=== PATIENT | female | born 1985 | race Caucasian/White ===

== ENCOUNTER 2017-12-30 15:20 | Observation (INO) | payer OTHER ==
[2017-12-30] VITALS (10 sets, daily range): BP systolic 108–123; BP diastolic 69–81
[~2017-12-30] VITALS: Ht 162.6 cm; Wt 73.3 kg
[2017-12-30] MEDS ORDERED: BETAMETHASONE ACE/NA PHOS 6 MG/ML (CELESTONE SOLUSPAN) ONE (16:45)
[2017-12-30] MEDS ORDERED: D5 LR IV SOLUTION 1,000 ML IV ONE (16:45)
[2017-12-30] MEDS: BETAMETHASONE ACE/NA PHOS 6 MG/ML (CELESTONE SOLUSPAN) IM SCH (16:57)
[2017-12-30] MEDS: D5 LR IV SOLUTION 1,000 ML IV SCH (16:57)
[2017-12-30 17:15] LABS: BASOPHILS % (AUTO) 0 % (0-10); EOSINOPHILS # (AUTO) 0.1 10^3/uL (0.0-0.3); EOSINOPHILS % (AUTO) 1 % (0-10); HEMATOCRIT 39 % (35-52); HEMOGLOBIN 13.5 G/DL (11.5-16.0); LYMPHOCYTES # (AUTO) 1.8 X 10^3 (1.0-4.0); LYMPHOCYTES % (AUTO) 22 % (12-44); MEAN CORPUSCULAR HEMOGLOBIN 31 PG (25-34); MEAN CORPUSCULAR HGB CONC 35 G/DL (32-36); MEAN CORPUSCULAR VOLUME 88 FL (80-99); MEAN PLATELET VOLUME 9.3 FL (7.4-10.4); MONOCYTES # (AUTO) 0.6 X 10^3 (0.0-1.0); MONOCYTES % (AUTO) 7 % (0-12); NEUTROPHILS % (AUTO) 71 % (42-75); PLATELET COUNT 263 10^3/uL (130-400); RED BLOOD COUNT 4.41 10^6/uL (4.35-5.85); RED CELL DISTRIBUTION WIDTH 13.1 % (10.0-14.5); WHITE BLOOD COUNT 8.5 10^3/uL (4.3-11.0)
--- OUTSIDE RECORDS SUMMARY | 2017-12-30 20:13 | XMS REPORT | Continuity of Care Document ---
Author Author [facility] Organization [facility] Address Unknown Phone Unavailable Allergies There is no data. Medications There is no data. Problems Date Dx Coded Attending Type Code Diagnosis Diagnosed By 04/30/2015 IESHA WOORDUFF DO Ot G97.1 04/30/2015 IESHA WOODRUFF DO Ot O89.8 Procedures There is no data. Results There is no data. Encounters ACCT No. Visit Date/Time Discharge Status Pt. Type Provider Facility Loc./Unit Complaint [id number] 04/30/2015 15:54:00 04/30/2015 16:40:00 DIS Outpatient IESHA WOODRUFF DO [facility]
--- NOTE | 2017-12-30 22:06 | History & Physical ---
History and Physical Date Seen by Provider: Dec 30, 2017 Time Seen by Provider: 22:01 This patient is a 32-year-old A1 white female with an EDC of January giving her an estimated gestational age now of 32 weeks. She presented approximately 1520 today after having experienced a fairly significant fall while playing with one of her children 3 p.m. She has a fairly notable contusion to her left elbow and to her knee. She denies rupture membranes or bleeding. She is feeling occasional contractions. During the initial period of monitoring she began to contract about every 2-4 minutes. She does feel baby moving. She has had no other complications this . Allergies are none Medications are Synthroid and vitamins Medical social and surgical histories are per the antepartum record HEENT exam is normal Neck supple no lymphadenopathy no thyromegaly Abdomen is gravid soft nontender nondistended Extremities show clubbing cyanosis. The left elbow and forearm have a 10 x 14 cm ecchymotic contusion. The knee has a smaller abrasion. Pelvic exam shows a cervix less than a centimeter dilated and thick monitor shows contractions 2-4 minutes. The patient feels about 6 or 8 of these an hour. Laboratory Tests 12/30/17 17:00 Assessment and plan 32 weeks gestation status post traumatic fall and now with contractions. Patient will be monitored for at least 24 hours because of the increased potential and risk for placental abruption after trauma. She is being observed for signs or symptoms of progress in labor. She does strain cervical change we will initiate tocolytics. She has been given 12 mg of betamethasone IM empirically and we will repeat that in 24 hours. labor/trauma in Allergies and Home Medications Allergies Coded Allergies: No Known Drug Allergies (Unverified , 12/30/17) Patient Home Medication List Home Medication List Reviewed: Yes GUERITA DING MD Dec 30, 2017 10:06 pm
[2017-12-31 00:30] VITALS: BP 114/62
[2017-12-31 03:30] VITALS: BP 111/71
[2017-12-31 05:30] VITALS: BP 113/72
[2017-12-31] MEDS: D5 LR IV SOLUTION 1,000 ML IV SCH ×3 (06:04→12:22)
--- NOTE | 2017-12-31 07:19 | Progress Note-Standard ---
Standard Progress Note Progress Notes/Assess & Plan Date Seen by Provider: Dec 31, 2017 Time Seen by Provider: 07:17 Progress/Assessment & Plan This patient is without complaint except for her left elbow and right knee being tender. She denies contractions. She does feel baby moving. She denies rupture membranes or bleeding. She denies headache, denies shortness of breath , denies nausea vomiting, and denies chest pain. monitor shows no contractions. There is a normal heart rate pattern. Vital Signs Date Time Temp Pulse Resp B/P (MAP) Pulse Ox O2 Delivery O2 Flow Rate FiO2 12/31/17 05:30 97.6 83 18 113/72 (86) Room Air 12/31/17 03:30 97.8 81 18 111/71 (84) Room Air 12/31/17 00:30 98.1 76 18 114/62 (79) Room Air 12/30/17 23:30 78 18 112/69 (83) Room Air 12/30/17 22:00 94 18 110/75 (87) Room Air 12/30/17 21:00 90 108/69 (82) Room Air 12/30/17 20:00 99.0 94 120/72 (88) Room Air 12/30/17 19:00 88 112/72 (85) Room Air 12/30/17 18:30 86 113/74 (87) Room Air 12/30/17 18:00 86 108/74 (85) Room Air 12/30/17 17:30 98.1 82 116/81 (93) Room Air 12/30/17 17:00 Room Air 12/30/17 16:30 73 16 122/81 (95) Room Air 12/30/17 16:00 87 16 123/78 (93) Room Air Vital signs are stable. Patient afebrile. The abdomen is gravid soft nontender nondistended. Extremities show no clubbing cyanosis. There is a contusion on her left elbow an abrasion and contusion on her right knee that are stable. There is no evidence of bone fracture. Patient can move her extremities well. She states that she is sore but her pain has improved since admission. Assessment and plan hospital day number 2 with labor that now has resolved. This returned labor commenced after the patient had experienced a traumatic fall. She has been observed since shortly after 3 p.m. yesterday when she follows observation will continue until 3 p.m. today specific for any signs symptoms and indications of compromise/abruption. He remains stable through the 24-hour period of observation and she will be discharged home with follow-up in clinic Final Diagnosis labor/trauma in GUERITA DING MD Dec 31, 2017 7:19 am
--- NOTE | 2017-12-31 07:22 | Discharge Instructions ---
Discharge Instructions Discharge Medications New, Converted or Re-Newed RX: Other Patient Instructions Patient Instructions: As directed Return to The Hospital For: As directed Activity & Diet Discharge Diet: No Restrictions Activity as Tolerated: Yes Orders-Post D/C & Referrals Return to clinic as scheduled for your are OB appointment Return to clinic for any signs symptoms or indications of labor Return to clinic for any issues of concern with the . GUERITA DING MD Dec 31, 2017 7:22 am
[2017-12-31 08:00] VITALS: BP 116/73
[2017-12-31 12:10] VITALS: BP 95/53
[2017-12-31] MEDS ORDERED: TETANUS,DIPTH,PERTUSS P/F (BOOSTRIX) 0.5 ML VIAL IM ONE (14:45)
[2017-12-31] MEDS: BETAMETHASONE ACE/NA PHOS 6 MG/ML (CELESTONE SOLUSPAN) IM SCH (15:17)
== END 2017-12-31 15:30 | disposition home or self-care (01) ==
LOC: LDRP 15:20 → WSo 15:20 → LDRP 19:40 → WSo 19:40
PROVIDERS: ADMIT Obstetrics & Gynecology; ATTEND Obstetrics & Gynecology
DX: O60.03 Preterm labor without delivery, third trimester (principal); O9A.213 Injury, poisoning and certain other consequences of external causes complicating pregnancy, third trimester; S50.02XA Contusion of left elbow, initial encounter; S80.01XA Contusion of right knee, initial encounter; W19.XXXA Unspecified fall, initial encounter; Z3A.32 32 weeks gestation of pregnancy; Z23 Encounter for immunization
CPT/HCPCS: 36415; 85025; 90715; 96360; 96361; 96372; 99211; G0378

== ENCOUNTER 2018-02-02 09:08 | Outpatient (CLI) | payer OTHER ==
[~2018-02-02] VITALS: Ht 162.6 cm; Wt 74.2 kg
[2018-02-02 09:39] VITALS: BP 115/81
[2018-02-02] MEDS ORDERED: LEVO200T6 PO (09:46)
[2018-02-02] MEDS ORDERED: PREN1TAB44 PO (09:46)
[2018-02-10] MEDS ORDERED: OXYC1TAB12 PO (07:46)
[2018-02-10] MEDS ORDERED: IBUP-1780 PO (07:46)
[2018-02-10] MEDS ORDERED: DOCU100C37 PO (07:46)
== END 2018-02-02 09:37 | disposition home or self-care (01) ==
LOC: PREOP 09:08
PROVIDERS: ATTEND Obstetrics & Gynecology
DX: Z01.818 Encounter for other preprocedural examination (principal)
CPT/HCPCS: 87081

== ENCOUNTER 2018-02-09 03:24 | Inpatient (IN) | payer OTHER ==
[~2018-02-09] VITALS: Ht 162.6 cm; Wt 74.4 kg
[~2018-02-09 03:24] MED LIST: LEVO200T6 PO; PREN1TAB44 PO
[2018-02-09 10:08] VITALS: BP 120/90
[2018-02-09] MEDS ORDERED: D5 LR IV SOLUTION 1,000 ML IV SCH (10:15)
[2018-02-09] MEDS ORDERED: ceFAZolin INJECTION 2,000 MG in NS (IVPB) 50 ML IV ONE (10:15)
[2018-02-09] MEDS ORDERED: ceFAZolin 2 GM IV Premixed 50 ML IV ONE (10:15)
[2018-02-09] MEDS ORDERED: metroNIDAZOLE 500MG/100ML IVPB 100 ML IV ONE ×2 (10:15)
--- OUTSIDE RECORDS SUMMARY | 2018-02-09 10:19 | XMS REPORT | Continuity of Care Document ---
Author Author [facility] Organization [facility] Address Unknown Phone Unavailable Allergies Active Description Code Type Severity Reaction Onset Reported/Identified Relationship to Patient Clinical Status Yes No Known Drug Allergies [id number] Drug Allergy Unknown N/A 12/30/2017 Medications There is no data. Problems Date Dx Coded Attending Type Code Diagnosis Diagnosed By 04/30/2015 IESHA WOODRUFF DO Ot G97.1 04/30/2015 IESHA WOODRUFF DO Ot O89.8 12/31/2017 Ot O60.03 LABOR WITHOUT DELIVERY, THIRD TR 12/31/2017 Ot O9A.213 INJ/POISN/ OTH CONSEQ OF EXTERNAL CAUSES 12/31/2017 Ot S50.02XA CONTUSION OF LEFT ELBOW, INITIAL ENCOUNT 12/31/2017 Ot S80.01XA CONTUSION OF RIGHT KNEE, INITIAL ENCOUNT 12/31/2017 Ot W19.XXXA UNSPECIFIED FALL, INITIAL ENCOUNTER 12/31/2017 Ot Z23 ENCOUNTER FOR IMMUNIZATION 12/31/2017 Ot Z3A.32 32 WEEKS GESTATION OF Procedures There is no data. Results Test Result Range Complete blood count (CBC) with automated white blood cell (WBC) differential - 12/30/17 17:00 Blood leukocytes automated count (number/volume) 8.5 10*3/uL 4.3-11.0 Blood erythrocytes automated count (number/volume) 4.41 10*6/uL 4.35-5.85 Venous blood hemoglobin measurement (mass/volume) 13.5 g/dL 11.5-16.0 Blood hematocrit (volume fraction) 39 % 35-52 Automated erythrocyte mean corpuscular volume 88 [foz_us] 80-99 Automated erythrocyte mean corpuscular hemoglobin (mass per erythrocyte) 31 pg 25-34 Automated erythrocyte mean corpuscular hemoglobin concentration measurement ( mass/volume) 35 g/dL 32-36 Automated erythrocyte distribution width ratio 13.1 % 10.0-14.5 Automated blood platelet count (count/volume) 263 10*3/uL 130-400 Automated blood platelet mean volume measurement 9.3 [foz_us] 7.4-10.4 Automated blood neutrophils/100 leukocytes 71 % 42-75 Automated blood lymphocytes/100 leukocytes 22 % 12-44 Blood monocytes/100 leukocytes 7 % 0-12 Automated blood eosinophils/100 leukocytes 1 % 0-10 Automated blood basophils/100 leukocytes 0 % 0-10 Blood neutrophils automated count (number/volume) 6.0 10*3 1.8-7.8 Blood lymphocytes automated count (number/volume) 1.8 10*3 1.0-4.0 Blood monocytes automated count (number/volume) 0.6 10*3 0.0-1.0 Automated eosinophil count 0.1 10*3/uL 0.0-0.3 Automated blood basophil count (count/volume) 0.0 10*3/uL 0.0-0.1 [id number] - 12/30/17 17:00 [id number] SPECIMEN AVAILABLE NRG Methicillin resistant Staphylococcus aureus (MRSA) screening culture - 09:33 Methicillin resistant Staphylococcus aureus (MRSA) screening culture NEG NRG Encounters ACCT No. Visit Date/Time Discharge Status Pt. Type Provider Facility Loc./Unit Complaint [id number] 04/30/2015 15:54:00 04/30/2015 16:40:00 DIS Outpatient IESHA WOODRUFF DO [facility] [id number] 02/09/2018 10:12:00 ACT Inpatient GUERITA DING MD [facility] LD PREVIOUS [id number] 02/03/2018 14:28:00 Document Registration [id number] 12/31/2017 07:21:00 Document Registration
[2018-02-09] MEDS ORDERED: CITRIC ACID/SOB CIT (BICITRA) 30 ML UDC PO ONE (10:30)
[2018-02-09] MEDS ORDERED: METOCLOPRAMIDE INJ 10 MG/2 ML (REGLAN) IV ONE (10:30)
[2018-02-09] MEDS ORDERED: raNItidine INJECTION 50 MG in NS (IVPB) 50 ML IV ONE (10:30)
[2018-02-09] MEDS ORDERED: CATHETER FLUSH 10 ML SYR IV PRN (10:30)
[2018-02-09] MEDS: LACTATED RINGERS 1,000 ML IV PRN ×2 (10:34→11:00)
[2018-02-09 10:51] LABS: BASOPHILS % (AUTO) 0 % (0-10); EOSINOPHILS % (AUTO) 0 % (0-10); HEMATOCRIT 36 % (35-52); HEMOGLOBIN 12.9 G/DL (11.5-16.0); LYMPHOCYTES # (AUTO) 1.5 X 10^3 (1.0-4.0); LYMPHOCYTES % (AUTO) 22 % (12-44); MEAN CORPUSCULAR HEMOGLOBIN 31 PG (25-34); MEAN CORPUSCULAR HGB CONC 36 G/DL (32-36); MEAN CORPUSCULAR VOLUME 86 FL (80-99); MONOCYTES # (AUTO) 0.5 X 10^3 (0.0-1.0); MONOCYTES % (AUTO) 7 % (0-12); NEUTROPHILS % (AUTO) 71 % (42-75); PLATELET COUNT 224 10^3/uL (130-400); RED BLOOD COUNT 4.23 10^6/uL (4.35-5.85); RED CELL DISTRIBUTION WIDTH 12.7 % (10.0-14.5)
[2018-02-09 10:58] LABS: BILIRUBIN,URINE NEGATIVE (NEGATIVE); CLARITY,URINE SLIGHTLY CLOUDY; COLOR,URINE YELLOW; GLUCOSE, URINE (UA) NEGATIVE (NEGATIVE); KETONES,URINE NEGATIVE (NEGATIVE); LEUKOCYTE ESTERASE ,URINE NEGATIVE (NEGATIVE); NITRITE,URINE NEGATIVE (NEGATIVE); PH,URINE 6 (5-9); PROTEIN,URINE NEGATIVE (NEGATIVE); UROBILINOGEN,URINE NORMAL (NORMAL)
[2018-02-09 11:06] LABS: BACTERIA,URINE MODERATE /HPF; WBC,URINE RARE /HPF
[2018-02-09] MEDS ORDERED: fentaNYL INJECTION 100 MCG/2 ML AMP ONE (11:29)
[2018-02-09] MEDS ORDERED: LIDOCAINE PF 2% 2 ML (XYLOCAINE) VIAL ONE (11:29)
[2018-02-09] MEDS ORDERED: BUPIVACAINE SPINAL 0.75% (SENSORCAINE) 2 ML AMP ONE (11:29)
[2018-02-09 11:40] VITALS: BP 124/83
--- NOTE | 2018-02-09 12:07 | History & Physical ---
History and Physical Date Seen by Provider: Feb 09, 2018 Time Seen by Provider: 12:04 This patient is a 32-year-old A1 1 white female with an EDC of February 21, 2018 presenting now for repeat delivery at 38 weeks gestation. She has a history significant for polyhydramnios. She is also hypothyroid on medication. She denies rupture membranes or bleeding she is having contractions about every 4-5 minutes. She had a GBS culture at 35 weeks gestation that was negative. Allergies are none Medications are Synthroid 200 g daily and vitamins Medical social and surgical histories are per the antepartum record HEENT exam is normal Neck supple no lymphadenopathy no thyromegaly Abdomen is gravid soft nontender nondistended Extreme show no clubbing cyanosis. There is no Homans sign. Pelvic exam is deferred Laboratory Tests 02/09/18 10:34 monitor shows contractions every 4-5 minutes and a normal heart rate pattern Assessment and plan term at 38 weeks gestation admitted now for repeat delivery. Surgical risks and complications recovery and follow- up have been fully discussed. Patient accepts those risks and is ready to 38 weeks gestation Previous he has Allergies and Home Medications Allergies Coded Allergies: No Known Drug Allergies (Unverified , 12/30/17) Home Medications Levothyroxine Sodium 200 Mcg Tablet, 200 MCG PO DAILY, (Reported) Vit/Iron Fumarate/FA 1 Each Tablet, 1 EACH PO DAILY, (Reported) Patient Home Medication List Home Medication List Reviewed: Yes GUERITA DING MD Feb 09, 2018 12:07 pm
[2018-02-09] MEDS ORDERED: ONDANSETRON 4 MG/2 ML (SDV) Z0FRAN ONE (12:33)
[2018-02-09] MEDS ORDERED: PHENYLEPHRINE 100 MCG/ML 10 ML (ANESTHESIA) SYR ONE (12:33)
[2018-02-09] MEDS ORDERED: ROPIVACAINE 5MG/ML 30ML VIAL ONE ×2 (12:50→13:08)
[2018-02-09] MEDS ORDERED: KETOROLAC 30 MG/ML VIAL ONE (12:55)
[2018-02-09] MEDS ORDERED: ONDANSETRON 4 MG/2 ML (SDV) Z0FRAN IVP PRN ×2 (13:30→14:30)
[2018-02-09] MEDS: KETOROLAC 30 MG/ML VIAL IVP SCH ×2 (13:40→19:45)
[2018-02-09 13:55] VITALS: BP 111/68
[2018-02-09] MEDS ORDERED: OXYTOCIN/NORMAL SALINE 500 ML IV SCH (14:28)
[2018-02-09] MEDS ORDERED: MEPERIDINE (DEMEROL) INJ 100 MG/ML IM PRN (14:30)
[2018-02-09] MEDS ORDERED: TETANUS,DIPTH,PERTUSS P/F (BOOSTRIX) 0.5 ML VIAL IM ONE (14:30)
[2018-02-09] MEDS ORDERED: PROMETHAZINE INJ 25 MG/ML (PHENERGAN) AMP IM PRN (14:30)
[2018-02-09] MEDS ORDERED: MEASLES,MUMPS,RUBELLA 1 EA INJ SC ONE (14:30)
[2018-02-09] MEDS ORDERED: D5 LR IV SOLUTION 1,000 ML IV ONE (14:36)
[2018-02-09 16:00] VITALS: BP 127/84
[2018-02-09] MEDS: oxyCODONE/APAP 10/325MG (PERCOCET 10) TABLET PO PRN ×4 (16:00→23:56)
--- NOTE | 2018-02-09 18:14 | OPERATIVE REPORT ---
DATE OF SERVICE: 02/09/2018 PREOPERATIVE DIAGNOSIS: Term at 38 weeks gestation with polyhydramnios for repeat . POSTOPERATIVE DIAGNOSIS: Term at 38 weeks gestation with polyhydramnios for repeat . OPERATIVE PROCEDURE: Repeat low transverse delivery of a viable female with Apgars of 8 and 9 at 1 and 5 minutes. Expected weight of 7 pounds 1 ounce, time of 12:24 and a cord blood pH was 7.31. OPERATIVE DESCRIPTION: With the patient in the supine position under satisfactory spinal analgesia, the patient was prepped and draped in the usual fashion for abdominal surgery. Caraballo catheter was placed in the urinary bladder. A repeat Pfannenstiel incision made through skin with a scalpel. The patient's abdomen entered in the usual manner. Bladder retractor placed in position, clean scalpel used to make a 4 cm hysterotomy incision transversely across the lower uterine segment that was extended by blunt dissection as well. Copious clear fluid was released on hysterotomy. Dunne forceps were applied to facilitate the delivery of a vigorous viable female with Apgars and stats were noted above. The infant was bulb suctioned on delivery of the head and nuchal cord was easily released and delivery completed. The infant was bulb suctioned on delivery of the head and then again on completion of delivery. The umbilical cord was doubly clamped and cut and the passed to the pediatric nurse in attendance for delivery. Cord bloods were obtained. The placenta delivered spontaneously and partially manually as it was quite adherent near the fundus. The placenta was sent to pathology for permanent section. It was a normal placenta with a 3-vessel cord. The uterus was exteriorized and to wipe clean with a wet laparotomy sponge. Uterine incision closed with running locked suture of 2-0 Vicryl. Hemostasis was complete. The uterus was returned to the abdominal cavity. All blood clot and debris removed from the abdominal cavity. Sponge and needle counts correct, hemostasis assured. The anterior parietal peritoneum was closed in a running suture of 2-0 Vicryl. Rectus muscles were closed with that suture. Rectus fascia was closed with 2-0 Vicryl, subcutaneous tissue with 2-0 Vicryl and the skin was stapled. Sponge and needle counts were correct at the end of procedure. Estimated blood loss for procedure was around 500 mL. The patient tolerated the procedure well and was transferred to the recovery room in stable condition. The had been taken stable to the full term nursery under the care of the pediatric nurse. Job ID: [id number] DocumentID: [id number] Dictated Date: 02/09/2018 12:49:54 Occ Therapy Asst Date: 02/09/2018 18:13:39 Dictated By: GUERITA DING MD
[2018-02-09 19:45] VITALS: BP 135/93
[2018-02-09] MEDS: DOCUSATE SODIUM 100 MG (COLACE) CAP PO SCH (21:19)
[2018-02-10 00:05] VITALS: BP 124/89
[2018-02-10] MEDS: KETOROLAC 30 MG/ML VIAL IVP SCH (02:08)
[2018-02-10 04:20] VITALS: BP 116/80
[2018-02-10] MEDS: oxyCODONE/APAP 10/325MG (PERCOCET 10) TABLET PO PRN ×5 (04:22→20:30)
--- NOTE | 2018-02-10 07:44 | Progress Note-Standard ---
Standard Progress Note Progress Notes/Assess & Plan Date Seen by Provider: Feb 10, 2018 Time Seen by Provider: 07:43 Progress/Assessment & Plan This patient is without complaint. She is ambulating, voiding, tolerating oral intake well has good pain control. Vital Signs 02/09/18 02/10/18 16:00 04:20 Temp 97.8 Pulse 86 Resp 18 B/P (MAP) 116/80 (92) Pulse Ox 98 O2 Delivery Room Air Vital signs are stable. Patient is afebrile. Fundus is firm below the umbilicus and nontender. The surgical incision is clean dry and intact. Extremities show no clubbing or cyanosis. There is no Homans sign. Assessment and plan postoperative day number 1 status post repeat doing well. Plan is for routine convalescence care GUERITA DING MD Feb 10, 2018 7:44 am
[2018-02-10] MEDS ORDERED: IBUP-1780 PO (07:46)
[2018-02-10] MEDS ORDERED: DOCU100C37 PO (07:46)
[2018-02-10] MEDS ORDERED: OXYC1TAB12 PO (07:46)
--- NOTE | 2018-02-10 07:47 | Discharge Instructions ---
Discharge Instructions Discharge Medications New, Converted or Re-Newed RX: RX on Chart Patient Instructions Patient Instructions: As directed Return to The Hospital For: As directed Activity & Diet Discharge Diet: No Restrictions Activity as Tolerated: No Orders-Post D/C & Referrals Follow Up Appt: RTC on Monday, February 16, 2018 at 930 a.m. for incision check. Call to make follow up appt. for patient in 4 weeks. Wound Care: Remove max, apply benzoin and steri strips. Activity Per routine post instructions. Please call in RX to patient pharmacy. Diet as tolerated Patient may shower or tub bathe as desired. Continue home meds GUERITA DING MD Feb 10, 2018 7:47 am
[2018-02-10] MEDS ORDERED: IBUPROFEN 800 MG (MOTRIN) TAB PO ONE (08:21)
[2018-02-10 08:25] VITALS: BP 117/72
[2018-02-10] MEDS: DOCUSATE SODIUM 100 MG (COLACE) CAP PO SCH ×2 (08:25→20:31)
--- NOTE | 2018-02-10 09:07 | Anesthesia-Regional Post-Op ---
Regional Patient Condition Mental Status: Alert, Oriented x3 Circulation: Same as Pre-Op Headache: Absent Sensation: Full Recovery Motor Block: Absent Post Op Complications Complications None Follow Up Care/Instructions Patient Instructions None needed. Anesthesia/Patient Condition Patient is doing well, no complaints, stable vital signs, no apparent adverse anesthesia problems. No complications reported per nursing. D/C home per [facility] [place] [facility]: JAZ Villegas CRNA Feb 10, 2018 09:07
[2018-02-10 12:05] VITALS: BP 123/83
[2018-02-10] MEDS: IBUPROFEN 800 MG (MOTRIN) TAB PO SCH ×2 (15:16→20:31)
[2018-02-10 15:17] VITALS: BP 122/83
[2018-02-10 21:23] VITALS: BP 106/80
[2018-02-11] MEDS: oxyCODONE/APAP 10/325MG (PERCOCET 10) TABLET PO PRN ×3 (00:24→14:26)
[2018-02-11] MEDS: IBUPROFEN 800 MG (MOTRIN) TAB PO SCH ×3 (03:20→14:26)
[2018-02-11 03:21] VITALS: BP 125/79
[2018-02-11 08:30] VITALS: BP 106/72
[2018-02-11] MEDS: DOCUSATE SODIUM 100 MG (COLACE) CAP PO SCH (08:45)
--- NOTE | 2018-02-11 11:26 | Progress Note-Standard ---
Standard Progress Note Progress Notes/Assess & Plan Date Seen by Provider: Feb 11, 2018 Time Seen by Provider: 11:25 Progress/Assessment & Plan This patient is without complaint. She is ambulating, voiding, tolerating oral intake well has good pain control. Vital Signs 02/09/18 02/10/18 16:00 04:20 Temp 97.8 Pulse 86 Resp 18 B/P (MAP) 116/80 (92) Pulse Ox 98 O2 Delivery Room Air Vital signs are stable. Patient is afebrile. Fundus is firm below the umbilicus and nontender. The surgical incision is clean dry and intact. Extremities show no clubbing or cyanosis. There is no Homans sign. Assessment and plan postoperative day number 1 status post repeat doing well. Plan is for routine convalescence care February 11, 2018 Patient is without complaint. She is ambulating, voiding, tolerating oral intake well, has good pain control, and is requesting discharge home. Vital Signs 02/11/18 08:30 Temp 97.9 Pulse 84 Resp 18 B/P (MAP) 106/72 (83) Pulse Ox 97 O2 Delivery Room Air Vital signs are stable. Patient is afebrile. Fundus is firm below the umbilicus and nontender. Extremities show no clubbing cyanosis. There is no Homans sign. Assessment and plan post operative day number 2 status post repeat delivery doing well. Plan is for discharge home with follow-up in clinic Final Diagnosis 38 week repeat delivery GUERITA DING MD Feb 11, 2018 11:26 am
[2018-02-11 14:00] VITALS: BP 112/69
[2018-02-11 15:10] VITALS: BP 112/69
--- NOTE | 2018-02-14 16:42 | Physician Query-General Query ---
Physician Query-General Query to Physician: Dr Jeong, Can you please clarify the reason for the admission for : 1. Polyhydramonios 2. Previous 3. Other PHYSICIAN RESPONSE: Based on the clinical findings in the record, please respond to the query above on this document as an addendum. Possible, probable, or questionable diagnosis can be coded for INPATIENTS ONLY. Physician Response: Physician Response This patient was admitted for repeat due to polyhydramnios If you have questions please contact: Sausage Cutter: Ext: Thank you for your time and cooperation. Clinical Pay Station Department Manager/Sausage Cutter This is a permanent part of the medical record KRISTINA GUEVARA Feb 14, 2018 16:41 GUERITA JEONG MD Feb 15, 2018 07:50
== END 2018-02-11 15:10 | disposition home or self-care (01) | DRG 766 ==
LOC: LDRP 10:12 → WS 14:05
PROVIDERS: ADMIT Obstetrics & Gynecology; ATTEND Obstetrics & Gynecology
PROC: 10D00Z1 Extraction of Products of Conception, Low, Open Approach (ICD-10-PCS; principal; 2018-02-09 12:00)
DX: O40.3XX0 Polyhydramnios, third trimester, not applicable or unspecified (principal); O34.211 Maternal care for low transverse scar from previous cesarean delivery; O99.284 Endocrine, nutritional and metabolic diseases complicating childbirth; E03.9 Hypothyroidism, unspecified; Z3A.38 38 weeks gestation of pregnancy; Z37.0 Single live birth
CPT/HCPCS: 36415; 81000; 85025; 86850; 86900; 86901; 88307; 94664

== ENCOUNTER 2021-05-24 11:22 | Outpatient (CLI) | payer BC ==
[~2021-05-24] VITALS: Ht 162.6 cm; Wt 72.7 kg
[~2021-05-24 11:22] MED LIST changes: +DOCU100C37 PO; +IBUP-1780 PO; +OXYC1TAB12 PO
[2021-05-24 11:30] VITALS: BP 125/86
[2021-05-24] MEDS ORDERED: IRON DEXTRAN 1,000 MG/NS 250 ML IVPB IV ONE ×2 (11:45)
[2021-05-24] MEDS ORDERED: IRON DEXTRAN 25 MG/NS 6.25 ML TOTAL VOLUME IV ONE ×3 (11:45)
[2021-05-24] MEDS ORDERED: HYDROCORTISONE 100 MG/2 ML (Solu-CORTEF) VIAL IV PRN (11:45)
[2021-05-24] MEDS ORDERED: EPINEPHrine INJECTION 1 MG/ML AMP IM PRN (11:45)
[2021-05-24] MEDS ORDERED: diphenhydrAMINE 50 MG/ML INJ (BENADRYL) IV PRN (11:45)
[2021-05-24] MEDS ORDERED: RT-ALBUTEROL SULF 2.5 MG/3 ML PRE-MIX VIAL INH PRN (11:45)
== END 2021-05-24 13:30 ==
LOC: SDC 11:22
PROVIDERS: ATTEND Obstetrics & Gynecology
DX: D64.9 Anemia, unspecified (principal)
CPT/HCPCS: 96365

== ENCOUNTER → 2021-07-15 | Outpatient (CLI) | payer BC | LOC: LABNPT 15:11 | PROVIDERS: ATTEND Obstetrics & Gynecology | DX: O16.3 Unspecified maternal hypertension, third trimester (principal) | CPT/HCPCS: 82570; 84156 ==

== ENCOUNTER → 2021-07-21 | Outpatient (CLI) | payer BC | LOC: LABNPT 11:58 | PROVIDERS: ATTEND Obstetrics & Gynecology | DX: O13.9 Gestational [pregnancy-induced] hypertension without significant proteinuria, unspecified trimester (principal) | CPT/HCPCS: 82570; 84156 ==

== ENCOUNTER → 2021-08-04 | Outpatient (CLI) | payer BC ==
[~2021-08-04] VITALS: Ht 162.6 cm; Wt 77.7 kg
[~2021-08-04] MED LIST changes: +ACHD5005 PO; +FERR325T24 PO; +IBUP-844 PO; +[UNRECOGNIZED DRUG - CODE] TP
== END | disposition home or self-care (01) ==
LOC: PREOP 11:39
PROVIDERS: ATTEND Obstetrics & Gynecology
DX: Z01.818 Encounter for other preprocedural examination (principal)

== ENCOUNTER 2021-08-05 02:41 | Inpatient (IN) | payer BC ==
[2021-08-05] VITALS (11 sets, daily range): BP systolic 108–150; BP diastolic 64–103
[~2021-08-05] VITALS: Ht 162.6 cm; Wt 78.7 kg
[~2021-08-05 02:41] MED LIST changes: -ACHD5005 PO; -IBUP-844 PO
[2021-08-05] MEDS ORDERED: CITRIC ACID/SOB CIT (BICITRA) 30 ML UDC PO ONE (06:15)
[2021-08-05] MEDS ORDERED: FAMOTIDINE 20MG/2ML IV (PEPCID) IV ONE (06:15)
[2021-08-05] MEDS ORDERED: ceFAZolin 2 GM IV Premixed 50 ML IV ONE (06:15)
[2021-08-05] MEDS ORDERED: LACTATED RINGERS 1,000 ML IV PRN ×2 (06:15)
[2021-08-05] MEDS ORDERED: METOCLOPRAMIDE INJ 10 MG/2 ML (REGLAN) IV ONE (06:15)
[2021-08-05 06:45] LABS: BASOPHILS % (AUTO) 0 % (0-10); EOSINOPHILS # (AUTO) 0.1 10^3/uL (0.0-0.3); EOSINOPHILS % (AUTO) 1 % (0-10); HEMATOCRIT 38 % (35-52); HEMOGLOBIN 12.6 g/dL (11.5-16.0); LYMPHOCYTES # (AUTO) 1.6 10^3/uL (1.0-4.0); LYMPHOCYTES % (AUTO) 25 % (12-44); MEAN CORPUSCULAR HEMOGLOBIN 29 pg (25-34); MEAN CORPUSCULAR HGB CONC 34 g/dL (32-36); MEAN CORPUSCULAR VOLUME 86 fL (80-99); MEAN PLATELET VOLUME 10.1 fL (9.0-12.2); MONOCYTES # (AUTO) 0.5 10^3/uL (0.0-1.0); MONOCYTES % (AUTO) 7 % (0-12); NEUTROPHILS # (AUTO) 4.3 10^3/uL (1.8-7.8); NEUTROPHILS % (AUTO) 67 % (42-75); PLATELET COUNT 178 10^3/uL (130-400); WHITE BLOOD COUNT 6.5 10^3/uL (4.3-11.0)
--- NOTE | 2021-08-05 07:20 | History & Physical-OB ---
OB - Chief Complaint & HPI Date/Time Date of Admission: Date of Admission: Aug 05, 2021 at 06:04 Date seen by a Provider: Aug 05, 2021 Time Seen by a Provider: 07:50 Chief Complaint/History OB-Reason for Admission/Chief: Section Hx : 4 Hx Para: 2 Expected Date of Delivery: Aug 30, 2021 Gestational Age in Weeks: 36 Gestational Age in Days: 3 Admission Nurse Assessment Rev: Yes Allergies and Home Medications Allergies Coded Allergies: No Known Drug Allergies (Unverified , 12/30/17) Patient Home Medication List Home Medication List Reviewed: Yes Azelaic Acid (Azelaic Acid) Unknown Strength Gel..gram., 15 % TP PRN, (Reported) Entered as Reported by: LILIANA BURCH on 08/04/21 134 Ferrous Sulfate (Ferosul) 325 Mg Tablet, 325 MG PO BID, (Reported) Entered as Reported by: LILIANA BURCH on 08/04/21 134 Levothyroxine Sodium (Levothyroxine Sodium) 200 Mcg Tablet, 200 MCG PO DAILY, (Reported) Entered as Reported by: RAMAKRISHNA UNGER on 02/02/18945 Vit/Iron Fumarate/FA ( Tablet) 1 Each Tablet, 1 EACH PO DAILY, (Reported) Entered as Reported by: RAMAKRISHNA UNGER on 02/02/18945 Discontinued Medications Docusate Sodium (Docusate Sodium) 100 Mg Capsule, 100 MG PO BID Discontinued Reason: No Longer Taking Prescribed by: GUERITA WILKINS on 02/10/18745 Ibuprofen (Ibuprofen) 800 Mg Tablet, 800 MG PO Q6H Discontinued Reason: No Longer Taking Prescribed by: GUERITA WILKINS on 02/10/18745 Oxycodone HCl/Acetaminophen (Percocet 10-325 mg Tablet) 1 Each Tablet, 1 TAB PO Q4HR PRN for PAIN-MODERATE TO SEVERE Discontinued Reason: No Longer Taking Prescribed by: GUERITA WILKINS on 02/10/18745 OB - History Hx of Present Care: Yes Ultrasounds: Abnormal US findings (US yesterday showed drastic decrease in CARMINA, and concerning umbilical dopplers.) Obstetrical Complications: Gestational Hypertension Medical Complications: None Delivery History Adverse Rxn to Tranfusion: No Patient Past Medical History hx of stillbirth Immunizations Influenza Vaccine Up-to-Date: No; Not Current First/Initial COVID19 Vaccine: 2020 Second COVID19 Vaccination: 2020 COVID19 Vaccine Resource Protection Specialist: Gio OB - Admission Exam Physical Exam Vitals: Vital Signs 08/05/21 06:32 Temp 36.3 Pulse 98 Resp 18 Pulse Ox 98 O2 Delivery Room Air HEENT: NCAT Heart: Rhythm Normal Lungs: Clear Abdomen: Gravid Membranes: Intact Heart Rate: 130's Accelerations: Accelerations Present Decelerations: No Decelerations Short Term Variability: Present Retirement Variability: Average (6-25) Contractions on Admission: >10 Minutes Apart Labs Laboratory Tests Test 08/05/21 06:39 Range/Units White Blood Count 6.5 4.3-11.0 10^3/uL Red Blood Count 4.36 3.80-5.11 10^6/uL Hemoglobin 12.6 11.5-16.0 g/dL Hematocrit 38 35-52 % Mean Corpuscular Volume 86 80-99 fL Mean Corpuscular Hemoglobin 29 25-34 pg Mean Corpuscular Hemoglobin Concent 34 32-36 g/dL Red Cell Distribution Width 20.0 H 10.0-14.5 % Platelet Count 178 130-400 10^3/uL Mean Platelet Volume 10.1 9.0-12.2 fL Immature Granulocyte % (Auto) 0 % Neutrophils (%) (Auto) 67 42-75 % Lymphocytes (%) (Auto) 25 12-44 % Monocytes (%) (Auto) 7 0-12 % Eosinophils (%) (Auto) 1 0-10 % Basophils (%) (Auto) 0 0-10 % Neutrophils # (Auto) 4.3 1.8-7.8 10^3/uL Lymphocytes # (Auto) 1.6 1.0-4.0 10^3/uL Monocytes # (Auto) 0.5 0.0-1.0 10^3/uL Eosinophils # (Auto) 0.1 0.0-0.3 10^3/uL Basophils # (Auto) 0.0 0.0-0.1 10^3/uL Immature Granulocyte # (Auto) 0.0 0.0-0.1 10^3/uL OB - Assessment/Plan/Diagnosis Assessment Assessment: section Admission Dx 36 yo @ 36 weeks Hx of still at 36 weeks Previous GHTN Elevated umbilical doppler Admission Status: Inpatient Order (span 2 midnights) Reason for Inpatient Admission: Repeat cesareaan Plan Plan: Section CEDRIC CROCKER DO Aug 05, 2021 07:20
[2021-08-05 07:43] LABS: BILIRUBIN,URINE NEGATIVE (NEGATIVE); CLARITY,URINE CLEAR; COLOR,URINE YELLOW; GLUCOSE, URINE (UA) NEGATIVE (NEGATIVE); KETONES,URINE NEGATIVE (NEGATIVE); LEUKOCYTE ESTERASE ,URINE NEGATIVE (NEGATIVE); NITRITE,URINE NEGATIVE (NEGATIVE); PROTEIN,URINE NEGATIVE (NEGATIVE)
[2021-08-05] MEDS ORDERED: KETAMINE 50 MG/5 ML SYRINGE ONE (07:53)
[2021-08-05] MEDS ORDERED: fentaNYL INJ 100 MCG/2 ML AMP ONE (07:53)
[2021-08-05 08:00] LABS: BACTERIA,URINE FEW /HPF; SQUAMOUS EPITHELIAL CELL,UR 0-2 /HPF; WBC,URINE 0-2 /HPF
[2021-08-05] MEDS ORDERED: TETANUS,DIPTH,PERTUSS P/F (BOOSTRIX) 0.5 ML VIAL IM SCH (08:00)
[2021-08-05] MEDS ORDERED: NALOXONE 0.4 MG/ML 1 ML (NARCAN) VIAL IV PRN (08:00)
[2021-08-05] MEDS ORDERED: ONDANSETRON 4 MG/2 ML (SDV) Z0FRAN IVP PRN (08:00)
[2021-08-05] MEDS ORDERED: MEASLES,MUMPS,RUBELLA 1 EA INJ SC SCH (08:00)
[2021-08-05] MEDS: KETOROLAC 30 MG/ML VIAL IV SCH ×3 (08:30→20:23)
--- NOTE | 2021-08-05 08:54 | Discharge Inst-Women's Service ---
Discharge Inst-Women's Serv Depart Medication/Instructions New, Converted or Re-Newed RX: Transmitted to Pharmacy Final Diagnosis POD 2 RLTCS Problems Reviewed?: Yes Consults/Follow Up Additional Follow Up: Yes Orders/Referrals Dr. Chua in 7-10 days and in 6 weeks Activity Activity: Activity as Tolerated Driving Instructions: No Driving for 1 Week NO SMOKING: NO SMOKING Nothing Inside Vagina: No Douching, No [place], No Tampons Diet Discharge Diet: No Restrictions Symptoms to Report to : Bleeding Excessive, Pain Increased, Fever Over 101 Degrees F, Vaginal Bleeding Increase, Questions/Concerns For Any Problems or Questions: Contact Your Physician Skin/Wound Care Infection Signs and Symptoms: Increased Redness, Foul Odor of Wound, Increased Drainage, Skin Itchy or Has a Rash, Increased Swelling, Temperature Above 101 F Operative Area Clean and Dry: Keep Incision Clean/Dry Stitches/Kimberly/Dermabond: Dermabond, Care of Stitches Bathing Instructions: CEDRIC Tomas DO Aug 05, 2021 08:54
[2021-08-05] MEDS ORDERED: DOCU100C37 PO (08:55)
[2021-08-05] MEDS ORDERED: IBUP-844 PO (08:55)
[2021-08-05] MEDS ORDERED: ACHD5005 PO (08:55)
[2021-08-05] MEDS ORDERED: OXYTOCIN PRE-MIX DRIP 500 ML IV ONE (09:08)
[2021-08-05] MEDS ORDERED: KETOROLAC 30 MG/ML VIAL ONE (09:08)
[2021-08-05] MEDS: OXYTOCIN PRE-MIX DRIP 500 ML IV SCH ×2 (09:47→13:52)
[2021-08-05] MEDS ORDERED: CARBOPROST (HEMABATE) 250 MCG/ML AMP IM ONE ×3 (10:30→13:30)
[2021-08-05] MEDS ORDERED: BUPIVACAINE 0.5% 30 ML (SENSORCAINE) VIAL ONE (10:48)
[2021-08-05] MEDS: DOCUSATE SODIUM 100 MG (COLACE) CAP PO SCH ×2 (11:02→20:18)
--- NOTE | 2021-08-05 13:18 | OPERATIVE REPORT ---
DATE OF SERVICE: 08/05/2021 PREOPERATIVE DIAGNOSES: 1. A 36-year-old G4, P2 at 36 weeks and 3 days' gestation. 2. Gestational hypertension. 3. Elevated umbilical Dopplers on ultrasound. 4. Significant drop in amniotic fluid. 5. Bilateral renal pyelectasis. 6. Previous section. POSTOPERATIVE DIAGNOSES: 1. A 36-year-old G4, P2 at 36 weeks and 3 days' gestation. 2. Gestational hypertension. 3. Elevated umbilical Dopplers on ultrasound. 4. Significant drop in amniotic fluid. 5. Bilateral renal pyelectasis. 6. Previous section. PROCEDURE: Repeat low transverse section. SURGEON: Ran Crocker DO INSURANCE PROCESSOR: Adore Fried DNP, was necessary for manipulation and retraction throughout the procedure. ANESTHESIA: Spinal. ESTIMATED BLOOD LOSS: 500 mL. URINE OUTPUT: 225 mL clear at the end of the procedure. FLUIDS: 1000 mL lactated Ringer's solution. FINDINGS: A live female weighing 5 pounds 10 ounces, Apgars of 8 and 9. Grossly normal appearing uterus, bilateral fallopian tubes and ovaries with arcuate shaped uterus. SPECIMEN SENT: Placenta. INDICATIONS FOR PROCEDURE: A 36-year-old female is a patient who was seen in the office yesterday and had critical concerns with the , which prompted my decision to proceed with early delivery. Risk of early delivery, prematurity were discussed with the patient and versus risk of ongoing and possibility of stillbirth and the patient experienced stillbirth in the past approximately 35 weeks. They wished to proceed with delivery at this point. Risks of the procedure itself was reviewed with the patient including bleeding, infection, damage to surrounding structures including, but not limited to bowel, bladder, ureter, kidneys, possible need for reoperation, postoperative complications that may occur, risk from anesthesia and even . After everything was discussed with the patient in detail, consent was obtained, the patient was taken to the operating room. OPERATIVE REPORT IN DETAIL: Once in the operating room, spinal analgesia was found to be adequate. She was placed in the supine position with leftward tilt, prepped and draped in normal sterile fashion where a timeout was performed. Anesthesia was tested. I then make a Pfannenstiel skin incision through the previous scar using knife and carried down to the underlying fascia using Bovie cautery. The fascial incision extended laterally using Bovie cautery. Superior aspect of fascial incision was then grasped with Melodie clamps, tented upwards and dissected off the underlying rectus muscles. The inferior aspect of fascial incision was then grasped with Melodie clamps, tented up and dissected off the underlying rectus muscles. The underlying rectus muscles were dissected down the midline using sharp dissection, which closed the peritoneum, which I entered bluntly and extended using blunt traction. Jesus Manuel ring retractor was placed in the peritoneal incision, which offers excellent lateral sidewall retraction. I identified the lower uterine segment, which was found to be very thinned out with a small uterine window. I made an incision through the vesicouterine peritoneum and bluntly dissected off the lower uterine segment, creating a bladder flap. I then proceeded with my myotomy until membranes were visualized, at which point I extended the uterine incision laterally and superiorly using bandage scissors. Amniotomy was performed. In the process of doing this, clear fluid was noted. The infant was found in vertex presentation. With gentle fundal pressure, the 's head was elevated up the incision where the nares and oropharynx were bulb suctioned and nuchal cord was reduced x2. Anterior and posterior shoulders were delivered. was then brought to the operating field with cord doubly clamped and cut and infant handed off to waiting nurses in attendance. Cord blood was collected, 3-vessel cord with intact placenta was delivered spontaneously thereafter. IV Pitocin was initiated to facilitate uterine contraction. Uterine fundus confirmed by manual massage. The uterus was then exteriorized and cleared of all endometrial clots and debris. I then proceeded with closing the uterine incision using 0 Vicryl suture in running locked fashion. Second layer of imbricating 0 Monocryl was placed. Excellent hemostasis was noted after doing this. I then placed the uterus back in the pelvis and copiously irrigated the pelvis using normal saline. Once again, this active bleeding noted from any of my dissection planes. I placed Interceed antiadhesive over my low transverse incision. I then removed the Jesus Manuel ring retractor and proceeded with closing the peritoneum using 3-0 Vicryl suture in interrupted fashion. The rectus muscle reapproximated using 3-0 Vicryl suture in interrupted fashion. The fascia was reapproximated using 0 Vicryl suture in running fashion. Subcutaneous tissue was reapproximated using 3-0 plain interrupted subcutaneous stitch and skin reapproximated using 4-0 Monocryl running subcuticular. Dermabond was applied to incision and sterile dressings with adhesive white tape. The patient tolerated the procedure well and was taken to recovery area in stable condition. Lap and sponge counts were correct at the end of procedure. Instrument counts correct as well. Two grams of Ancef given preoperatively for infection prophylaxis. Job ID: [id number] DocumentID: [id number] Dictated Date: 08/05/2021 09:06:43 Back Sizer Date: 08/05/2021 13:17:14 Dictated By: RAN CROCKER DO
[2021-08-05] MEDS: HYDROcodone/APAP 5 MG/325 MG (LORTAB) TAB PO PRN ×3 (13:43→23:28)
[2021-08-05] MEDS ORDERED: diphenhydrAMINE 50 MG/ML INJ (BENADRYL) IM ONE (17:15)
[2021-08-05] MEDS ORDERED: OXYTOCIN PRE-MIX DRIP 500 ML IV SCH (18:00)
[2021-08-05] MEDS: CATHETER FLUSH 10 ML SYR IV SCH (19:43)
[2021-08-06] MEDS: CATHETER FLUSH 10 ML SYR IV SCH ×2 (00:45→02:10)
[2021-08-06] MEDS: KETOROLAC 30 MG/ML VIAL IV SCH (02:10)
[2021-08-06 04:08] VITALS: BP 116/68
[2021-08-06] MEDS: HYDROcodone/APAP 5 MG/325 MG (LORTAB) TAB PO PRN ×3 (04:08→16:17)
[2021-08-06 05:26] LABS: BASOPHILS % (AUTO) 0 % (0-10); EOSINOPHILS # (AUTO) 0.1 10^3/uL (0.0-0.3); EOSINOPHILS % (AUTO) 1 % (0-10); HEMATOCRIT 28 % (35-52); HEMOGLOBIN 9.2 g/dL (11.5-16.0); LYMPHOCYTES # (AUTO) 1.1 10^3/uL (1.0-4.0); LYMPHOCYTES % (AUTO) 14 % (12-44); MEAN CORPUSCULAR HEMOGLOBIN 29 pg (25-34); MEAN CORPUSCULAR HGB CONC 33 g/dL (32-36); MEAN CORPUSCULAR VOLUME 89 fL (80-99); MEAN PLATELET VOLUME 10.1 fL (9.0-12.2); MONOCYTES # (AUTO) 0.4 10^3/uL (0.0-1.0); MONOCYTES % (AUTO) 6 % (0-12); NEUTROPHILS # (AUTO) 6.3 10^3/uL (1.8-7.8); NEUTROPHILS % (AUTO) 79 % (42-75); PLATELET COUNT 163 10^3/uL (130-400)
[2021-08-06] MEDS ORDERED: FLU QUADRIvalent (3YOA+) 60 mcg/0.5 ml 2021-22(AFLURIA) IM ONE (07:15)
--- NOTE | 2021-08-06 07:28 | Postpartum Progress Note ---
Note Note Day # 1 Subjective: Patient is without complaints. Ambulating, voiding. Tolerating a regular diet without nausea or vomiting. Normal lochia. Pain is well controlled with oral pain medications. Objective: Physical Exam: General - Alert and oriented, no apparent distress Abdomen - Soft, appropriately tender to palpation, non-distended, fundus firm at umbilicus Extremities - no edema, negative Gerda's bilaterally Incision- c/d/i Assessment: POD 1 RLTCS Acute blood loss anemia Plan: Routine care. Encourage breast feeding. Encourage ambulation. Ferrous sulfate supplementation. Plan for discharge tomorrow Vitals - Labs Vital Signs - I&O Vital Signs Date Time Temp Pulse Resp B/P (MAP) Pulse Ox O2 Delivery O2 Flow Rate FiO2 08/06/21 04:08 37.1 95 18 116/68 (84) 98 Room Air 08/05/21 23:28 37.3 95 18 108/64 (79) 98 Room Air 08/05/21 20:23 37.1 96 18 136/85 (102) 98 Room Air 08/05/21 18:00 37.2 87 18 130/84 (99) 98 Room Air 08/05/21 12:45 37.0 79 18 122/74 (90) 98 Room Air 08/05/21 10:45 37.0 93 16 150/81 (104) 99 Room Air 08/05/21 10:00 36.7 18 139/90 (106) 99 Room Air 08/05/21 10:00 Room Air 08/05/21 09:45 Room Air 08/05/21 09:45 36.8 14 126/103 (111) 99 Room Air 08/05/21 09:30 Room Air 08/05/21 09:30 36.5 18 125/99 (108) 99 Room Air 08/05/21 09:15 Room Air 08/05/21 09:15 36.5 20 149/91 (110) 99 Room Air I & O 08/06/21 07:00 Intake Total 3950 ml Output Total 3075 ml Balance 875 ml Labs Laboratory Tests 08/06/21 05:09: White Blood Count 8.0, Red Blood Count 3.16L, Hemoglobin 9.2#L, Hematocrit 28L, Mean Corpuscular Volume 89, Mean Corpuscular Hemoglobin 29, Mean Corpuscular Hemoglobin Concent 33, Red Cell Distribution Width 20.0H, Platelet Count 163, Mean Platelet Volume 10.1, Immature Granulocyte % (Auto) 0, Neutrophils (%) (Auto) 79H, Lymphocytes (%) (Auto) 14, Monocytes (%) (Auto) 6, Eosinophils (%) (Auto) 1, Basophils (%) (Auto) 0, Neutrophils # (Auto) 6.3, Lymphocytes # (Auto) 1.1, Monocytes # (Auto) 0.4, Eosinophils # (Auto) 0.1, Basophils # (Auto) 0.0, Immature Granulocyte # (Auto) 0.0 CEDRIC CROCKER DO Aug 06, 2021 07:27
[2021-08-06] MEDS: FERROUS SULF 325 MG (IRON) TAB PO SCH ×2 (09:51→17:56)
[2021-08-06] MEDS: DOCUSATE SODIUM 100 MG (COLACE) CAP PO SCH ×2 (09:51→21:58)
[2021-08-06] MEDS ORDERED: IBUPROFEN 600 MG (MOTRIN) TAB PO ONE (09:54)
[2021-08-06] MEDS: IBUPROFEN 600 MG (MOTRIN) TAB PO SCH ×3 (09:54→21:58)
[2021-08-06 09:55] VITALS: BP 109/61
--- NOTE | 2021-08-06 10:58 | Anesthesia-Regional Post-Op ---
Regional Patient Condition Mental Status: Alert, Oriented x3 Circulation: Same as Pre-Op Headache: Absent Sensation: Full Recovery Motor Block: Absent Post Op Complications Complications None Follow Up Care/Instructions Patient Instructions None needed. Anesthesia/Patient Condition Patient is doing well, no complaints, stable vital signs, no apparent adverse anesthesia problems. IESHA WOODRUFF DO Aug 06, 2021 10:57
[2021-08-06 16:13] VITALS: BP 123/76
[2021-08-06 22:00] VITALS: BP 125/75
[2021-08-07] MEDS: IBUPROFEN 600 MG (MOTRIN) TAB PO SCH ×2 (04:04→10:00)
[2021-08-07] MEDS: HYDROcodone/APAP 5 MG/325 MG (LORTAB) TAB PO PRN (04:06)
[2021-08-07 04:07] VITALS: BP 131/87
[2021-08-07] MEDS: FERROUS SULF 325 MG (IRON) TAB PO SCH (08:15)
[2021-08-07] MEDS: DOCUSATE SODIUM 100 MG (COLACE) CAP PO SCH (08:15)
[2021-08-07 09:58] VITALS: BP 125/83
--- NOTE | 2021-08-07 10:12 | Postpartum Progress Note ---
Post Op Post-operative Day #2 Subjective: Patient is without complaints. Ambulating, voiding after rowe removed. Tolerating a regular diet without nausea or vomiting. Normal lochia. Pain is well controlled with oral pain medications. Passing flatus. Breast and bottlefeeding. Objective: VS - Last 72 Hours, by Label 08/05/21 08/05/21 08/05/21 08/05/21 06:32 07:16 09:15 09:15 Temp 36.3 36.6 36.5 Pulse 98 80 Resp 18 14 20 B/P (MAP) 134/91 (105) 149/91 (110) Pulse Ox 98 100 99 O2 Delivery Room Air Room Air Room Air Room Air 08/05/21 08/05/21 08/05/21 08/05/21 09:30 09:30 09:45 09:45 Temp 36.5 36.8 Resp 18 14 B/P (MAP) 125/99 (108) 126/103 (111) Pulse Ox 99 99 O2 Delivery Room Air Room Air Room Air Room Air 08/05/21 08/05/21 08/05/21 08/05/21 10:00 10:00 10:45 12:45 Temp 36.7 37.0 37.0 Pulse 93 79 Resp 18 16 18 B/P (MAP) 139/90 (106) 150/81 (104) 122/74 (90) Pulse Ox 99 99 98 O2 Delivery Room Air Room Air Room Air Room Air 08/05/21 08/05/21 08/05/21 08/06/21 18:00 20:23 23:28 04:08 Temp 37.2 37.1 37.3 37.1 Pulse 87 96 95 95 Resp 18 18 18 18 B/P (MAP) 130/84 (99) 136/85 (102) 108/64 (79) 116/68 (84) Pulse Ox 98 98 98 98 O2 Delivery Room Air Room Air Room Air Room Air 08/06/21 08/06/21 08/06/21 08/07/21 09:55 16:13 22:00 04:07 Temp 37.0 37.0 36.5 36.5 Pulse 79 92 89 82 Resp 18 16 17 17 B/P (MAP) 109/61 (77) 123/76 (92) 125/75 (92) 131/87 (102) Pulse Ox 98 99 98 99 O2 Delivery Room Air Room Air Room Air Room Air 08/07/21 09:58 Temp 36.4 Pulse 90 Resp 16 B/P (MAP) 125/83 (97) Pulse Ox 98 O2 Delivery Room Air Physical Exam: General - Alert and oriented, no apparent distress Abdomen - Soft, appropriately tender to palpation, non-distended, fundus firm at umbilicus Incision - clean, dry and intact; no erythema or induration, no drainage Extremities - no edema, negative Gerda's bilaterally Assessment: Post-operative day #2, status post repeat low transverse section. has been complicated by gestational hypertension, bilateral renal pyelectasis, arcuate uterus, and h/o stillbirth. Recovering well, hemodynamically stable Plan: Routine post-operative care. GHTN: Normotensive blood pressure in period. Viable female infant. Breast and bottlefeeding. Heme: preop hgb 12.6 --> 9.2. Ferrous sulfate supplementation. VTE prophylaxis: SCDs. Encourage ambulation. Contraception: Plans for abstinence to IUD placement in office. Plan for discharge today. Vitals - Labs Vital Signs - I&O Vital Signs Date Time Temp Pulse Resp B/P (MAP) Pulse Ox O2 Delivery O2 Flow Rate FiO2 08/07/21 09:58 36.4 90 16 125/83 (97) 98 Room Air 08/07/21 04:07 36.5 82 17 131/87 (102) 99 Room Air 08/06/21 22:00 36.5 89 17 125/75 (92) 98 Room Air 08/06/21 16:13 37.0 92 16 123/76 (92) 99 Room Air I & O 08/07/21 07:00 Intake Total 2200 ml Balance 2200 ml Labs Microbiology 08/05/21 Urine Culture - Final, Complete NO GROWTH 08/05/21 MRSA Screen - Final, Complete MRSA not isolated TESSIE CASTAÑEDA MD Aug 07, 2021 10:12
--- NOTE | 2021-08-07 10:17 | Short Stay Summary ---
Discharge Summary Hospital Course Was the Problem List Reviewed?: Yes Final Diagnosis: care following section Hospital Course Date of Admission: Aug 05, 2021 at 06:04 Admission Diagnosis : Family Physician/Provider: No,Local Physician Date of Discharge: 08/07/21 Discharge Diagnosis: care following section Hospital Course: Amy Mora is a 36 yo female at 36w3d who presented for repeat low transverse section due to complications related to gestational hypertension, renal bilateral pylectasis, arcuate shaped uterus and h/o stillbirth in prior . She tolerated the procedure well with a postop hgb of 9.2 from 12.6, requiring iron supplementation. Her course was uncomplicated and by POD#2, she was meeting all postoperative milestones with normotensive blood pressures. She was discharged home on POD#2 in stable condition with no issues with plans for close follow-up in office in 1 week for an incision and BP check. She will then follow-up in 6 weeks for a examination. Labs and Pending Lab Test: Microbiology 3 Urine Culture - Final, Complete NO GROWTH 3 MRSA Screen - Final, Complete MRSA not isolated Home Meds Active Ibu (Ibuprofen) 600 Mg Tablet 600 Mg PO Q6HR HYDROcodone/APAP 5 MG/325 MG TAB (Acetaminophen/Hydrocodone Bitart) 1 Tab Tab 1-2 Ea PO Q6HR PRN Docusate Sodium 100 Mg Capsule 100 Mg PO BID PRN Reported Ferosul (Ferrous Sulfate) 325 Mg Tablet 325 Mg PO BID Azelaic Acid Unknown Strength Gel..gram. 15 % TP PRN Tablet ( Vit/Iron Fumarate/FA) 1 Each Tablet 1 Each PO DAILY Levothyroxine Sodium 200 Mcg Tablet 200 Mcg PO DAILY Assessment/Pt Instructions Patient is cleared for discharge home with plans for close follow-up in 1 week for an incision check and 6 weeks for a appointment. Discharge Instructions Discharge Diet: No Restrictions Discharge Physical Examination Allergies: Coded Allergies: No Known Drug Allergies (Unverified , 12/30/17) Discharge Summary Date of Admission Aug 05, 2021 at 06:04 Date of Discharge Discharge Date: Aug 07, 2021 TESSIE CASTAÑEDA MD Aug 07, 2021 10:17
== END 2021-08-07 13:45 | disposition home or self-care (01) | DRG 787 ==
LOC: LDRP 06:04
PROVIDERS: ADMIT Obstetrics & Gynecology; ATTEND Obstetrics & Gynecology
PROC: 10D00Z1 Extraction of Products of Conception, Low, Open Approach (ICD-10-PCS; principal; 2021-08-05 08:05)
DX: O34.211 Maternal care for low transverse scar from previous cesarean delivery (principal); D62 Acute posthemorrhagic anemia; Z3A.36 36 weeks gestation of pregnancy; Z37.0 Single live birth; O13.4 Gestational [pregnancy-induced] hypertension without significant proteinuria, complicating childbirth; O90.81 Anemia of the puerperium; O35.8XX0 Maternal care for other (suspected) fetal abnormality and damage, not applicable or unspecified; Q51.810 Arcuate uterus
CPT/HCPCS: 36415; 81000; 85025; 86850; 86900; 86901; 87081; 87088; 94664